=== PATIENT | female | born 1995 | race African-American/Black ===

== ENCOUNTER 2016-07-01 16:13 | Emergency (ER) | payer SELFPAY ==
[~2016-07-01] VITALS: Ht 152.4 cm; Wt 82.6 kg
[2016-07-01 16:40] VITALS: BP 134/73
[2016-07-01] MEDS ORDERED: PROM25TA10 PO (16:56)
[2016-07-01] MEDS ORDERED: PREN1COM14 PO (16:56)
--- NOTE | 2016-07-01 16:56 | PHYS DOC ---
Adult General Chief Complaint Chief Complaint: TEST [facility] HPI Patient is a 20 year old this is a 0 para 0 female who presents today requesting a test as well as an ultrasound to see how far along she is. Patient states her last menstrual cycle was May 18, 2016. Patient denies any abdominal pain nausea vomiting urgency frequency or dysuria. Review of Systems Review of Systems Constitutional: Denies fever or chills [] Eyes: Denies change in visual acuity, redness, or eye pain [] HENT: Denies nasal congestion or sore throat [] Respiratory: Denies cough or shortness of breath [] Cardiovascular: No additional information not addressed in HPI [] GI: Request for test : Denies dysuria or hematuria [] Musculoskeletal: Denies back pain or joint pain [] Integument: Denies rash or skin lesions [] Neurologic: Denies headache, focal weakness or sensory changes [] Endocrine: Denies polyuria or polydipsia [] Physical Exam Physical Exam Constitutional: Well developed, well nourished, no acute distress, non-toxic appearance. [] HENT: Normocephalic, atraumatic, bilateral external ears normal, oropharynx moist, no oral exudates, nose normal. [] Eyes: PERRLA, EOMI, conjunctiva normal, no discharge. [] Neck: Normal range of motion, no tenderness, supple, no stridor. [] Cardiovascular:Heart rate regular rhythm, no murmur [] Lungs & Thorax: Bilateral breath sounds clear to auscultation [] Abdomen: Bowel sounds normal, soft, no tenderness, no masses, no pulsatile masses. [] Skin: Warm, dry, no erythema, no rash. [] Back: No tenderness, no CVA tenderness. [] Extremities: No tenderness, no cyanosis, no clubbing, ROM intact, no edema. [] Neurologic: Alert and oriented X 3, normal motor function, normal sensory function, no focal deficits noted. [] Psychologic: Affect normal, judgement normal, mood normal. [] EKG EKG [] Radiology/Procedures Radiology/Procedures [] Course & Med Decision Making Course & Med Decision Making Pertinent Labs and Imaging studies reviewed. (See chart for details) Patient is in the ED today requesting a test as well as an ultrasound to see how far along she is. Her last menstrual cycle was May 18, 2016. She has no abdominal pain urgency frequency or dysuria. Positive urine hCG. Patient was informed we don't do ultrasounds in the ED just to see how far along somebody is. She needs to follow up with an SINGLE [employer]OKE [employer]ER. Provided an OB for follow-up. Provided return precautions and discharged in stable condition. Dragon Disclaimer Dragon Disclaimer This electronic medical record was generated, in whole or in part, using a voice recognition dictation system. Departure Departure Impression: Primary Impression: Disposition: 01 HOME, SELF-CARE Condition: STABLE Referrals: ISA BATISTA MD Patient Instructions: ABCs of Additional Instructions: You are . Start taking vitamins every day. Follow-up with the provided SINGLE [employer]OKE PRE[employer]ER as soon as he can. Come back to the ED if you have any abdominal pain, vaginal bleeding or any concerning symptoms. Scripts Vit #105/Iron/FA/Dha (Prena1 True Combo Pack)1 Each Combo..pkg1 Each PO DAILY #90 Prov:PATY ERNST APRN 07/01/16 Promethazine Hcl 25 Mg Tablet1 Tab PO PRN Q6HRS #20 TAB Prov:PATY ERNST APRN 07/01/16 Problem Qualifiers Primary Impression: Weeks of gestation: less than 8 weeks Qualified Code: Z3A.01 - Less than 8 weeks gestation of PATY ERNST APRN Jul 01, 2016 16:56
== END 2016-07-01 17:34 | disposition home or self-care (01) ==
LOC: ER 16:13
DX: Z32.01 Encounter for pregnancy test, result positive (principal); Z3A.01 Less than 8 weeks gestation of pregnancy
CPT/HCPCS: 81025; 99283

== ENCOUNTER 2019-12-27 13:05 | Emergency (ER) | payer OTHER ==
[~2019-12-27] VITALS: Ht 149.9 cm; Wt 82.6 kg
[~2019-12-27 13:05] MED LIST: PREN1COM14 PO; PROM25TA10 PO
[2019-12-27 13:24] VITALS: BP 121/65
[2019-12-27] MEDS ORDERED: IBUPROFEN 400 MG TABLET. PO ONE (14:15)
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
--- NOTE | 2019-12-27 14:22 | RAD ---
EXAM: PA, oblique and lateral views right wrist PA, oblique and lateral views right hand DATE: 12/27/2019 1:46 PM INDICATION: Reason: PAIN / Spl. Instructions: / History: COMPARISON: No Prior FINDINGS/ IMPRESSION: 1. No acute fracture or dislocation of the right wrist or right hand 2. Mild soft tissue swelling about the right wrist and right index finger. Electronically signed by: Ike James MD (12/27/2019 2:19 PM) [id number]
[2019-12-27 14:24] LABS: BARBITURATES NEG (NEG); BENZODIAZEPINES NEG (NEG); CANNABINOIDS NEG (NEG); COCAINE NEG (NEG); METHADONE NEG (NEG); OPIATES NEG (NEG); PHENCYCLIDINE NEG (NEG)
[2019-12-27 14:35] LABS: AMPHETAMINE/METHAMPHETAMINE NEG (NEG)
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
[2019-12-27] MEDS ORDERED: IBUP-1007 PO (15:40)
[2019-12-27] MEDS ORDERED: ORPH100T PO (15:42)
== END 2019-12-27 15:51 | disposition home or self-care (01) ==
LOC: ER 13:05
DX: G89.11 Acute pain due to trauma (principal); M79.641 Pain in right hand; M25.531 Pain in right wrist; M54.2 Cervicalgia; R51 Headache; R60.0 Localized edema; V89.2XXA Person injured in unspecified motor-vehicle accident, traffic, initial encounter; Y93.89 Activity, other specified; Y92.413 State road as the place of occurrence of the external cause; Y99.8 Other external cause status
CPT/HCPCS: 29125; 70450; 72125; 73110; 73130; 80307; 81025; 99285